=== PATIENT | female | born 1985 | race Caucasian/White ===

== ENCOUNTER 2018-03-28 15:34 | Inpatient (IN) | payer MEDICAID, OTHER ==
[~2018-03-28] VITALS: Ht 167.6 cm; Wt 61.7 kg
[~2018-03-28 15:34] MED LIST: OXYC20TA41 MT
[2018-03-28 17:34] LABS: BASOPHILS % 0.4 % (0.0-2.0); EOSINOPHILS % 1.9 % (0.0-5.0); HEMOGLOBIN. 14.1 g/dL (12.0-16.0); LYMPHOCYTES % 47.9 % (20.0-50.0); MEAN CORPUSCULAR HEMOGLOBIN 29.1 pg (28.0-32.0); MEAN CORPUSCULAR VOLUME 86.8 fL (81.0-99.0); MEAN PLATELET VOLUME 9.2 fl (7.4-10.4); MONOCYTES % 10.3 % (2.0-8.0); NEUTROPHILS % 39.5 % (40.0-76.0); PLATELET 271 x1000/uL (130-400); RED BLOOD CELL COUNT 4.83 mill/uL (4.2-5.4); RED CELL DISTRIBUTION WIDTH 21.5 % (11.6-14.6)
[2018-03-28 17:35] LABS: HCG SCREEN NEGATIVE
[2018-03-28 17:41] LABS: PROTHROMBIN TIME 10.5 sec (9.1-11.1)
[2018-03-28] MEDS ORDERED: ONDANSETRON HCL 4MG/2ML INJ IV ONE (17:45)
[2018-03-28] MEDS ORDERED: MORPHINE SULFATE 4 MG/ML CPJ (NOT FOR IM USE) IV ONE (17:45)
[2018-03-28 19:15] VITALS: BP 122/86
[2018-03-28 19:36] LABS: CHLORIDE 100 mEq/L (98-107)
[2018-03-28 20:00] VITALS: BP 122/86
[2018-03-28] MEDS ORDERED: CLONIDINE 0.1MG TABLET PO PRN (20:30)
[2018-03-28] MEDS ORDERED: DEXT 5%/0.45% NACL 1000ML 1,000 ML IV SCH (20:30)
[2018-03-28] MEDS ORDERED: ACETAMINOPHEN 325MG TABLET PO PRN (20:30)
[2018-03-28] MEDS: ONDANSETRON HCL 4MG/2ML INJ IV PRN (21:13)
[2018-03-28] MEDS: HYDROCODONE/ACETAMINOPHEN 5/325MG TABLET PO PRN (21:13)
[2018-03-29] VITALS: BP 113/65
[2018-03-29] MEDS: MAGNESIUM/ALUMINUM HYDROXIDE/SIMETHICONE 30ML UDC PO PRN ×3 (01:17→23:19)
[2018-03-29] MEDS: HYDROCODONE/ACETAMINOPHEN 5/325MG TABLET PO PRN ×6 (01:19→23:17)
[2018-03-29 04:00] VITALS: BP 124/84
[2018-03-29 10:16] LABS: HEMATOCRIT. 39.5 % (36.0-48.0); HEMOGLOBIN. 13.2 g/dL (12.0-16.0); MEAN CORPUSCULAR HEMOGLOBIN 28.9 pg (28.0-32.0); MEAN CORPUSCULAR VOLUME 86.2 fL (81.0-99.0); PLATELET 214 x1000/uL (130-400); RED BLOOD CELL COUNT 4.58 mill/uL (4.2-5.4); RED CELL DISTRIBUTION WIDTH 20.3 % (11.6-14.6)
[2018-03-29] MEDS: ONDANSETRON HCL 4MG/2ML INJ IV PRN ×2 (10:16→23:39)
[2018-03-29 10:58] LABS: CHLORIDE 102 mEq/L (98-107)
[2018-03-29 12:00] VITALS: BP 112/67
[2018-03-29 13:56] LABS: ATYPICAL LYMPHOCYTES 5
[2018-03-29 13:58] LABS: PLATELET ESTIMATE NORMAL
[2018-03-29 16:00] VITALS: BP 116/67
[2018-03-29 20:00] VITALS: BP 119/78
[2018-03-30] VITALS: BP 121/72
[2018-03-30] MEDS: HYDROCODONE/ACETAMINOPHEN 5/325MG TABLET PO PRN ×3 (03:15→13:15)
[2018-03-30 04:00] VITALS: BP 117/70
[2018-03-30] MEDS: ONDANSETRON HCL 4MG/2ML INJ IV PRN ×2 (06:40→13:13)
[2018-03-30 08:00] VITALS: BP 131/88
[2018-03-30 08:30] VITALS: BP 131/88
[2018-03-30] MEDS: MAGNESIUM/ALUMINUM HYDROXIDE/SIMETHICONE 30ML UDC PO PRN (08:40)
[2018-03-30 12:00] VITALS: BP 111/71
[2018-03-30 14:18] VITALS: BP 117/71
== END 2018-03-30 15:00 | disposition home or self-care (01) | DRG 251 ==
LOC: ER 15:34 → 8WST 17:58 → EDBEDREQ 17:59 → ENRESERV 18:11
PROVIDERS: ADMIT Hospitalist; ATTEND Hospitalist
PROC: 0WPGX0Z Removal of Drainage Device from Peritoneal Cavity, External Approach (ICD-10-PCS; principal; 2018-03-29)
DX: R10.9 Unspecified abdominal pain (principal); F17.200 Nicotine dependence, unspecified, uncomplicated; G89.4 Chronic pain syndrome; I10 Essential (primary) hypertension; Z98.84 Bariatric surgery status; Z79.899 Other long term (current) drug therapy; Z88.0 Allergy status to penicillin; Z91.19 Patient's noncompliance with other medical treatment and regimen
CPT/HCPCS: 36415; 74150; 74176; 81025; 84703; 96374; 96375; 99285; J2270; J2405; J3490